=== PATIENT | male | born 2000 | race Caucasian/White ===

== ENCOUNTER 2023-08-01 22:29 | Emergency (ER) | payer OTHER ==
[~2023-08-01] VITALS: Ht 190.5 cm; Wt 106.4 kg
[2023-08-01 22:58] VITALS: TEMP 98.2
[2023-08-02 01:08] VITALS: O2SAT 97
[2023-08-02] MEDS ORDERED: MOUT1KIT2 (02:27)
[2023-08-02 02:43] VITALS: BP 111/81; PULSE 61; RESP 16
== END 2023-08-02 02:42 | disposition home or self-care (01) ==
LOC: ER 22:30
DX: S01.511A Laceration without foreign body of lip, initial encounter (principal); W04.XXXA Fall while being carried or supported by other persons, initial encounter; Y93.89 Activity, other specified; Y92.89 Other specified places as the place of occurrence of the external cause; Y99.8 Other external cause status
CPT/HCPCS: 99282